=== PATIENT | male | born 1950 | race Caucasian/White ===

== ENCOUNTER → 2021-04-21 13:06 | Outpatient (CLI) | payer MEDICARE, SELFPAY ==
--- NOTE | ~2021-04-21 | XR_ITS ---
EXAMINATION: XR knee RT 3V DATE: 04/21/2021 14:06 INDICATION: Unspecified osteoarthritis, unspecified site. TECHNIQUE: 3 views of right knee including standing views were obtained. COMPARISON: Right knee radiographs 01/06/2016 FINDINGS: Bone alignment is normal. No fracture. There is mild osteoarthritis of medial and lateral c ompartments and moderate osteoarthritis of patellofemoral compartment. No knee joint effusion. IMPRESSION: 1. Moderate right knee osteoarthritis. Reviewed, dictated and finalized at location A. ING SPECIALIST
--- NOTE | ~2021-04-21 | XR_ITS ---
EXAMINATION: XR knee LT 3V DATE: 04/21/2021 14:06 INDICATION: Unspecified osteoarthritis, unspecified site. Left knee pain. TECHNIQUE: 3 views of left knee including standing views were obtained. COMPARISON: Left knee radiographs 01/06/2016 FINDINGS: Normal. No fracture. There is mild osteoarthritis of medial and lateral compartments and mo derate osteoarthritis of patellofemoral compartment. No knee joint effusion. There are loose bodies i n the knee joint posteriorly. IMPRESSION: 1. Moderate left knee osteoarthritis. 2. Left knee joint loose bodies. Reviewed, dictated and finalized at location A. POLISHER
== END ==
PROVIDERS: Visit Provider Internal Medicine
DX: M17.0 Bilateral primary osteoarthritis of knee (principal); M23.42 Loose body in knee, left knee
CPT/HCPCS: 73562

== ENCOUNTER 2021-05-01 08:54 | Emergency (ER) | payer MEDICARE, SELFPAY ==
--- NOTE | ~2021-05-01 | XR_ITS ---
EXAMINATION: XR chest 1V portable INDICATION: Shortness of breath TECHNIQUE: Portable AP chest at 0939 hours COMPARISON: 06/21/2017 FINDINGS: There are airspace opacities of the right midlung zone and left lung base. No pleural effus ion or pneumothorax is identified. The cardiomediastinal silhouette is normal. Suture anchors are not ed in the humeral heads. IMPRESSION: 1. Airspace opacities of the left lung base and right midlung zone, consistent with atelectasis versu s pneumonia. Reviewed, dictated and finalized at location A. ICAL MANAGER IMPRESSION: 1. Airspace opacities of the left lung base and right midlung zone, consistent with atelectasis versus pneumonia.
--- NOTE | ~2021-05-01 | CT_ITS ---
EXAMINATION: CTA chest PE protocol DATE: 05/01/2021 10:17 INDICATION: Shortness of breath TECHNIQUE: Computed tomography angiography (CTA) of the chest was performed with 100 mL Omnipaque-350 intravenous contrast timed to evaluate the pulmonary arteries. Coronal maximum intensity projection 3D-reconstructions were created by the technologist. The dose-length product (DLP) was 409.31 mGy-cm. Automated exposure control and iterative reconstruction technique were employed. COMPARISON: 07/27/2015 FINDINGS: The pulmonary arteries are well-opacified. No pulmonary embolism is identified. There are p atchy groundglass opacities throughout the lungs, worst at the periphery of the left upper lobe, in t he lingula and dependent portions of the lower lobes, and in the inferior portion of the right upper lobe. There are trace pleural effusions. No pneumothorax is identified. The heart size is normal. The re is mild mediastinal lymphadenopathy. Coronary artery stents are noted. There is moderate thoracic spondylosis. A hemangioma is noted in the T11 vertebral body. IMPRESSION: 1. No pulmonary embolism. 2. Patchy groundglass opacities throughout the lungs, consistent with multifocal pneumonia. 3. Mild mediastinal lymphadenopathy, likely reactive. Reviewed, dictated and finalized at location A. SUPERVISOR IMPRESSION: 1. No pulmonary embolism. 2. Patchy groundglass opacities throughout the lungs, consistent with multifoca l pneumonia. 3. Mild mediastinal lymphadenopathy, likely reactive.
[2021-05-01 09:02] VITALS: BP 149/77; PULSE 87; RESP 18; TEMP 36.7; O2SAT 95
--- NOTE | 2021-05-01 09:19 | ECG_ITS ---
Measurements Intervals [place] Rate: 81 P: 32 IN: 188 QRS: -22 QRSD: 79 T: 11 QT: 325 QTc: 379 Interpretive Statements SINUS RHYTHM DELAYED PRECORDIAL R/S TRANSITION INFERIOR INFARCT, AGE INDETERMINATE BASELINE ARTIFACT- I, II, AVR, AVL, AVF ABNORMAL ECG Electronically Signed On 05-01-2021 11:33:53 IMMIGRATION ASSOCIATE by Sam Pepper D.O.
--- NOTE | 2021-05-01 09:28 | ED.URI ---
HPI - URI/Sore Throat General Chief Complaint: Upper Respiratory Infection Stated Complaint: Covid + Time Seen by Provider: 05/01/21 09:01 Source: patient History of Present Illness HPI Narrative: Patient presents with shortness of breath and cough. Patient reports she is feeling well for the past 5 days. Does report his tested positive for Covid he did a home test and did test positive for Covid approximately 5 days ago. He like his symptoms are getting worse so he came to the ER for evaluation. Describes symptoms as difficulty getting enough air. When he tries to take a big deep breath he coughs. Ports diffuse body aches denies any focal areas of pain such as chest pain or abdominal pain. Related Data Home Medications Medication Instructions Recorded Confirmed ascorbic acid (vitamin C) 1,000 mg 1 gm PO DAILY 06/08/19 04/29/21 tablet multivitamin 1 tablet PO DAILY 06/08/19 04/29/21 omega-3 fatty acids 1,000 mg 2,000 mg PO DAILY cap 06/08/19 04/29/21 capsule sildenafil 25 mg tablet 25 mg PO DAILY PRN 06/14/19 04/29/21 turmeric 400 mg capsule 400 mg PO DAILY 06/26/19 04/29/21 vitamin K2 40 mcg tablet 40 mcg PO DAILY 06/26/19 04/29/21 magnesium 250 mg tablet 250 mg PO DAILY 06/04/20 04/29/21 aspirin 81 mg tablet,delayed 81 mg PO DAILY tablet 04/16/21 04/29/21 release zinc 50 mg tablet 25 mg PO DAILY tablet 04/16/21 04/29/21 Allergies Allergy/AdvReac Type Severity Reaction Status Date / Time No Known Allergies Allergy Mild Verified 05/01/21 09:04 Review of Systems Review of Systems: CONSTITUTIONAL: Denies fever, chills, or sweats. EYES: Denies visual changes, redness, or discharge. ENT: Denies rhinorrhea, congestion, sore throat, or otalgia. CARDIOVASCULAR: Denies chest pain, palpitations, or edema. RESPIRATORY: Reports shortness of breath and cough GASTROINTESTINAL: Denies abdominal pain, nausea, vomiting, or diarrhea. GENITOURINARY: Denies dysuria or hematuria. SKIN: Denies rash or itching. MUSCULOSKELETAL: Denies back pain, joint pain NEUROLOGIC: Denies headache, numbness, dizziness, or weakness. PSYCHIATRIC: Denies anxiety or depression. All systems reviewed & are unremarkable except as noted in HPI and below PMFSH Past Medical History Medical History CAD (coronary artery disease) Colon cancer screening Hyperlipidemia Surgical History Surgical History H/O heart artery stent stents times 2 History of hernia surgery Family History Family History Mother Family history of respiratory disorder Father Family history of cardiac disorder Other Family history of cardiovascular disease Social History Social History Smoking status: Never smoker Second hand tobacco smoke exposure: No Alcohol intake: never Substance use: never Substance use type: does not use Gender identity (if verbalized by the patient): Male Spiritual care concerns: No Exam Narrative: GENERAL: Well-appearing, well-nourished, and in no acute distress. HEAD: Normocephalic, atraumatic. EYES: PERRLA and EOMI. ENT: Nares clear, no rhinorrhea or epistaxis. Mucous membranes moist. NECK: Supple. No masses. No JVD CHEST: Clear to auscultation. No respiratory distress. No wheezes rales or rhonchi HEART: Regular rate and rhythm. No murmur heard. Normal peripheral pulses. ABDOMEN: Soft, nontender, nondistended, normal active bowel sounds. EXTREMITIES: Normal range of motion. No edema. SKIN: Warm, dry, no rash. NEURO: No focal deficits. Alert and oriented x3. PSYCH: Normal mood and affect. Course Reevaluation(s) Reevaluation #1: Patient reports feeling improved. Results and plan reviewed with patient. Patient comfortable with outpatient plan. Date: 05/01/21 Time: 11:09 Vital Signs Wilda
[2021-05-01] MEDS: SODIUM CHLORIDE 0.9% IV 1,000 ML 999 ML IV CONT (09:29)
[2021-05-01 09:35] VITALS: O2SAT 96
[2021-05-01 09:39] LABS: Basophils Percent Auto 0.2 % (0.2-1.2); Hematocrit 47.5 % (42.0-52.0); Hemoglobin 16.5 g/dL (14.0-18.0); Immature Granulocyte Absolute 0.05 K/mm3 (0.00-0.031); Immature Granulocyte Percent A 0.6 % (0-0.5); Immature Platelet Fraction Pct 1.7 % (0.9-11.2); Lymphocytes Absolute Auto 1.02 K/mm3 (0.9-3.2); Lymphocytes Percent Auto 11.9 % (18.3-44.2); Mean Corpuscular HGB Conc 34.7 g/dl (32-36); Mean Corpuscular Hemoglobin 31.8 pg (26-34); Mean Corpuscular Volume 91.5 fl (80-100); Mean Platelet Volume 8.8 fl (7.4-10.4); Monocytes Absolute Auto 0.5 K/mm3 (0.1-0.6); Monocytes Percent Auto 6.2 % (2.6-8.5); Neutrophils Absolute Auto 6.9 K/mm3 (1.3-6.7); Neutrophils Percent Auto 81.1 % (45.5-73.1); Platelet Count Result 162 k/mm3 (150-375); Red Blood Count 5.19 M/mm3 (4.6-6.20); Red Cell Distribution Width 12.6 % (11.5-14.5); White Blood Count 8.6 K/mm3 (4.5-10.0)
[2021-05-01 09:48] LABS: Alanine Aminotransferase 20 U/L (4-50); Albumin Level 3.7 g/dL (3.5-5.1); Alkaline Phosphatase 57 U/L (38-126); Anion Gap 5 mmol/L (8-16); Aspartate Amino Transferase 41 U/L (17-59); Bilirubin,Total 0.8 mg/dL (0.2-1.3); Blood Urea Nitrogen 13 mg/dL (9-20); Calcium 8.2 mg/dL (8.4-10.2); Carbon Dioxide 30 mmol/L (22-30); Chloride 100 mmol/L (98-107); Estimated CRCL calculation 69 ml/min; Estimated Glomerular Filt Rate > 60; Glucose 113 mg/dL (65-110); Potassium 4.1 mmol/L (3.4-5.0); Sodium 135 mmol/L (137-145)
[2021-05-01 10:45] VITALS: BP 118/69; PULSE 74; RESP 17; O2SAT 95
[2021-05-01 11:25] VITALS: BP 113/77; PULSE 73; RESP 19; O2SAT 96
== END 2021-05-01 11:27 | disposition home or self-care (01) ==
PROVIDERS: Emergency Provider Emergency Medicine; PCP Internal Medicine
DX: U07.1 COVID-19 (principal); J12.82 Pneumonia due to coronavirus disease 2019; I25.10 Atherosclerotic heart disease of native coronary artery without angina pectoris; E78.5 Hyperlipidemia, unspecified; R94.31 Abnormal electrocardiogram [ECG] [EKG]
CPT/HCPCS: 36415; 71045; 71275; 80053; 85025; 85055; 93005; 96361; 96365; 99284; J0131; J7030; Q9967

== ENCOUNTER → 2022-01-15 12:16 | Outpatient (REF) | payer MEDICARE, SELFPAY | LOC: ANHLAB 12:16 | PROVIDERS: PCP Internal Medicine; Visit Provider Nurse Practitioner | DX: C44.41 Basal cell carcinoma of skin of scalp and neck (principal) | CPT/HCPCS: 88305 ==

== ENCOUNTER 2022-02-16 11:34 | Outpatient (NON) | payer MEDICARE, SELFPAY | END 2022-02-16 11:35 | disposition home or self-care (01) | LOC: ANHLAB 11:34 | PROVIDERS: PCP Internal Medicine; Visit Provider Nurse Practitioner | DX: C44.41 Basal cell carcinoma of skin of scalp and neck (principal) | CPT/HCPCS: 88305; 88331 ==

== ENCOUNTER 2023-09-27 09:48 | Outpatient (CLI) | payer MEDICARE, SELFPAY ==
--- NOTE | ~2023-09-27 | XR_ITS ---
XR shoulder LT min 2V 09/27/2023 10:06 Indication: Left shoulder pain Procedure: 4 views left shoulder Comparison: No prior studies for comparison. Findings: There is moderate polyarticular osteoarthritis. There are surgical changes of the left david ral head. No fracture or traumatic malalignment. No significant soft tissue abnormality. No foreign b odies. Impression: 1: Moderate polyarticular osteoarthritis. Reviewed, dictated and finalized at location B. Impression: 1: Moderate polyarticular osteoarthritis.
== END 2023-09-27 09:49 | disposition home or self-care (01) ==
LOC: ANHIMG 09:49
PROVIDERS: PCP Family Medicine; Visit Provider Family Medicine
DX: M19.012 Primary osteoarthritis, left shoulder (principal)
CPT/HCPCS: 73030

== ENCOUNTER 2023-11-17 11:12 | Outpatient (CLI) | payer MEDICARE, SELFPAY ==
--- NOTE | ~2023-11-17 | XR_ITS ---
Right wrist Technique: PA, oblique, lateral, and ulnar deviation views were obtained. Clinical History: Pain Findings: No acute fracture seen. Scapholunate interval is mildly widened at 6 mm. There is mild dege nerative change of the first CMC joint and triscaphe joint. Soft tissues are unremarkable. Impression: Mild widening of scapholunate interval is compatible with underlying scapholunate ligament tear. Mild degenerative changes, as above. Reviewed, dictated and finalized at location . Impression: Mild widening of scapholunate interval is compatible with underlying scapholuna te ligament tear. Mild degenerative changes, as above.
== END 2023-11-17 11:13 | disposition home or self-care (01) ==
PROVIDERS: PCP Family Medicine; Visit Provider Family Medicine
DX: M25.531 Pain in right wrist (principal)
CPT/HCPCS: 73110

== ENCOUNTER 2023-12-24 11:28 | Outpatient (CLI) | payer MEDICARE, SELFPAY ==
[2023-12-24 11:42] LABS: Basophils Absolute Auto 0.1 K/mm3 (0.0-0.1); Basophils Percent Auto 0.7 % (0.2-1.2); Eosinophils Absolute Auto 0.1 K/mm3 (0-0.3); Eosinophils Percent Auto 0.7 % (0-4.4); Hematocrit 50.4 % (42.0-52.0); Hemoglobin 16.9 g/dL (14.0-18.0); Immature Granulocyte Absolute 0.04 K/mm3 (0.00-0.031); Immature Granulocyte Percent A 0.4 % (0-0.5); Lymphocytes Absolute Auto 1.75 K/mm3 (0.9-3.2); Lymphocytes Percent Auto 16.4 % (18.3-44.2); Mean Corpuscular HGB Conc 33.5 g/dl (32-36); Mean Corpuscular Hemoglobin 31.1 pg (26-34); Mean Corpuscular Volume 92.8 fl (80-100); Mean Platelet Volume 8.3 fl (7.4-10.4); Monocytes Absolute Auto 0.9 K/mm3 (0.1-0.6); Monocytes Percent Auto 8.2 % (2.6-8.5); Neutrophils Absolute Auto 7.9 K/mm3 (1.3-6.7); Neutrophils Percent Auto 73.6 % (45.5-73.1); Platelet Count Result 267 k/mm3 (150-375); Red Blood Count 5.43 M/mm3 (4.6-6.20); Red Cell Distribution Width 12.5 % (11.5-14.5); White Blood Count 10.7 K/mm3 (4.5-10.0)
== END 2023-12-24 11:29 | disposition home or self-care (01) ==
LOC: ANHLAB 11:30
PROVIDERS: PCP Family Medicine; Visit Provider Internal Medicine Hematology & Oncology
DX: D75.1 Secondary polycythemia (principal)
CPT/HCPCS: 36415; 85025

== ENCOUNTER 2024-02-24 10:52 | Outpatient (CLI) | payer MEDICARE, SELFPAY ==
--- NOTE | ~2024-02-24 | XR_ITS ---
XR wrist LT min 3V Ordering provider: Shane Wood MD History: . no injury tingling and numbness in 4th and 5th fingers . Comparison: None. FINDINGS: BONES: No acute fracture or dislocation. No definite scaphoid fracture. JOINT SPACES: Well maintained. Degenerative changes withcystic changes in the scaphoid and lunate bon es. Slight widening of the distance between the lunate and scaphoid which may indicate ligamentous in jury. SOFT TISSUES: Normal. IMPRESSION: No acute osseous abnormality left wrist. Reviewed, dictated and finalized at location A.
== END 2024-02-24 10:53 | disposition home or self-care (01) ==
LOC: MICIMG 10:56
PROVIDERS: PCP Plastic Surgery; Visit Provider Family Medicine
DX: R20.2 Paresthesia of skin (principal)
CPT/HCPCS: 73110

== ENCOUNTER 2024-03-26 07:29 | Outpatient (CLI) | payer MEDICARE, SELFPAY ==
--- NOTE | ~2024-03-26 | MR_ITS ---
MRI of the right wrist Technique: Coronal T1 weighted and proton density fat sat images, and axial and sagittal proton-densi ty and proton-density fat-sat images were acquired. Clinical History: Scapholunate ligament tear Findings: There is probable tear of the dorsal band of the scapholunate ligament, with mild widening of the scapholunate interval to 6 mm. There is associated probable dorsal tilt of the lunate, compati ble with DISI. Lunotriquetral ligament appears intact. There is probable degenerative signal of the T FCC, full-thickness perforation or tear evident. There are mild degenerative changes throughout the carpal bones and radial carpal joint. No significa nt joint effusion present. Flexor tendons and carpal tunnel are unremarkable. There is a probable ganglion cyst just deep to the flexor tendons just proximal to the carpal tunnel, measuring 1.2 x 0.6 x 1.6 cm. Extensor tendons ar e intact. No other soft tissue mass or fluid collection seen. IMPRESSION: Probable tear of the dorsal band of the scapholunate joint, with mild widening of the scapholunate in terval, as detailed above. Associated probable DISI, with dorsal tilt of the lunate. Mild polyarticular osteoarthritis of the wrist. 10.2 x 0.6 x 1.6 cm probable ganglion cyst just deep to the flexor tendons, proximal to the carpal tu nnel, versus possibly focal tenosynovitis. Reviewed, dictated and finalized at location . IMPRESSION: Probable tear of the dorsal band of the scapholunate joint, with mild widening of the scapholunate interval, as detailed above. Associated probable DISI, with dorsal tilt of the lunate. Mild polyarticular osteoarthritis of the wrist. 10.2 x 0.6 x 1.6 cm probable ganglion cyst just deep to the flexor tendons, pro ximal to the carpal tunnel, versus possibly focal tenosynovitis.
== END 2024-03-26 07:30 | disposition home or self-care (01) ==
PROVIDERS: PCP Family Medicine; Visit Provider Plastic Surgery
DX: S63.511A Sprain of carpal joint of right wrist, initial encounter (principal); X58.XXXA Exposure to other specified factors, initial encounter; M19.031 Primary osteoarthritis, right wrist
CPT/HCPCS: 73221

== ENCOUNTER 2024-06-26 11:30 | Outpatient (CLI) | payer MEDICARE, SELFPAY ==
[2024-06-26 11:43] LABS: Basophils Absolute Auto 0.1 K/mm3 (0.0-0.1); Basophils Percent Auto 0.8 % (0.2-1.2); Eosinophils Absolute Auto 0.1 K/mm3 (0-0.3); Eosinophils Percent Auto 0.9 % (0-4.4); Hematocrit 52.7 % (42.0-52.0); Hemoglobin 17.7 g/dL (14.0-18.0); Immature Granulocyte Absolute 0.03 K/mm3 (0.00-0.031); Immature Granulocyte Percent A 0.3 % (0-0.5); Lymphocytes Absolute Auto 2.19 K/mm3 (0.9-3.2); Lymphocytes Percent Auto 24.1 % (18.3-44.2); Mean Corpuscular HGB Conc 33.6 g/dl (32-36); Mean Corpuscular Hemoglobin 31.4 pg (26-34); Mean Corpuscular Volume 93.4 fl (80-100); Mean Platelet Volume 8.3 fl (7.4-10.4); Monocytes Absolute Auto 0.6 K/mm3 (0.1-0.6); Monocytes Percent Auto 6.8 % (2.6-8.5); Neutrophils Absolute Auto 6.1 K/mm3 (1.3-6.7); Neutrophils Percent Auto 67.1 % (45.5-73.1); Platelet Count Result 259 k/mm3 (150-375); Red Blood Count 5.64 M/mm3 (4.6-6.20); Red Cell Distribution Width 12.4 % (11.5-14.5); White Blood Count 9.1 K/mm3 (4.5-10.0)
[2024-06-26 11:47] LABS: Blood Urea Nitrogen 13 mg/dL (8-26); Carbon Dioxide 30 mmol/L (22-30); Chloride 105 mmol/L (98-109); Estimated Glomerular Filt Rate > 60; Glucose 100 mg/dL (70-105); Ionized Calcium (POC) 1.21 mmol/L (1.11-1.31); Potassium 4.7 mmol/L (3.5-4.9); Sodium 142 mmol/L (138-146)
--- OUTSIDE RECORDS SUMMARY | 2024-06-29 13:02 | XMS_ITS | Referral Summary ---
Author Organization [facility] [employer] Address [address] [place] [address] Care Team Providers Care Telegraphic Typewriter Mechanic Name Role Phone Vazquez Mendoza MD Primary Care Provider [phone] Source Comments [employer],non-owned Affiliates and Associated Physician Practices is amultiple site organization consisting of ambulatory clinics and hospital sitesin [place], [place], [place] and [place]. This disclosure is being madepursuant to the Care Everywhere program and may not contain all information available regarding this patient. Last updated 18.Markr Allergies No known active allergies Medications * Be aware that medications may not be up to date on this document. Alwaysverify current medications with the patient. Medication Sig Dispensed Refills Start Date End Date Status primidone (MYSOLINE) 50 MG tablet Take 50 mg by mouth 2 times daily. Active clonazePAM (KLONOPIN) 1 MG tablet Take 1 mg by mouth at bedtime. Active ascorbic acid (VITAMIN C) 250 MG tablet Take 250 mg by mouth 2 times daily. Active calcium-vitamin D (OS-IAN 250 PLUS D 125 UNITS) 250-125 MG-UNIT tablet Take 1 Tab by mouth 2 times daily with morning and evening meal. Active [place]-3 Fatty Acids (FISH OIL) 1000 MG CAPS capsule Take 1,000 mg by mouth. Active multivitamin daily (THERAGRAN) tablet Take 1 Tab by mouth daily with food. Active cyanocobalamin (VITAMIN B-12) 1000 MCG tablet Take 1,000 mcg by mouth once daily. Active niacin CR (NIASPAN) 500 MG tablet Take 500 mg by mouth at bedtime. Active fenofibrate (LOFIBRA) 160 MG tablet Take 160 mg by mouth once daily. Take with largest meal of the day. Active Social History Tobacco Use Types Packs/Day Years Used Date Smoking Tobacco: Never Alcohol Use Standard Drinks/Week Comments No 0 (1 standard drink = 0.6 oz pur e alcohol) Sex and Gender Information Value Date Recorded Sex Assigned at Not on file Gender Identity Not on file Sexual Orientation Not on file Last Filed Vital Signs Vital Sign Reading Time Taken Comments Blood Pressure 115/75 01/04/2014 9:27 AM CDT Pulse 57 01/04/2014 9:27 AM CDT Temperature - - Respiratory Rate - - Oxygen Saturation 92% 01/04/2014 9:25 AM CDT Inhaled Oxygen Concentration - - Weight 68.9 kg (152 lb) 01/04/2014 7:51 AM CDT Height 170.2 cm (5' 7 ) 01/04/2014 7:51 AM CDT Body Mass Index 23.81 01/04/2014 7:51 AM CDT Plan of Treatment Not on file Procedures Procedure Name Priority Date/Time Associated Diagnosis Comments ENDOSCOPY, COLON, SCREENING Routine 01/04/2014 8:29 AM CDT from Last 3 Months or Most Recently Relevant to Health Maintenance Results * ENDOSCOPY, COLON, SCREENING (01/04/2014 8:29 AM CDT) Report Endoscopy POC _ Patient Name: James Mohr ?Procedure Date: 01/04/2014 8:29 AM ? Date of : 1950 ? Admit Type: Outpatient Age: 63 ? Gender: Male Attending MD: Rod Nicole MD ? _ Procedure: ? Colonoscopy Indications: ? Screening for colorectal malignant neoplasm Providers: ? Rod Nicole MD (Doctor), Lynsey Espinosa RN, ? Donovan Singer, Excelsior Picker Referring MD: ?Fausto Castaneda MD (Referring MD) Medicines: ? Monitored Anesthesia Care Complications: ? No immediate complications. _ Procedure: ? Pre-Anesthesia Assessment: ? - Prior to the procedure, a History and Physical was ? performed, and patient medications and allergies were ? reviewed. The patient is competent. The risks and benefits ? of the procedure and the sedation options and risks were ? discussed with the patient. All questions were answered ? and informed consent was obtained. Patient identification ? and proposed procedure were verified by the physician, the ? nurse, the firepot operator and tender and the electrical cad technician in the endoscopy ? suite. Mental Status Examination: alert and oriented. ? Airway Examination: normal oropharyngeal airway and neck ? mobility. Respiratory Examination: clear to auscultation. ? CV Examination: normal. ASA Grade Assessment: II - A ? patient with mild systemic disease. After reviewing the ? risks and benefits, the patient was deemed in satisfactory ? condition to undergo the procedure. The anesthesia plan ? was to use general anesthesia. Immediately prior to ? administration of medications, the patient was re-assessed ? for adequacy to receive sedatives. The heart rate, ? respiratory rate, oxygen saturations, blood pressure, ? adequacy of pulmonary ventilation, and response to care ? were monitored throughout the procedure. The physical ? status of the patient was re-assessed after the procedure. ? After I obtained informed consent, the scope was passed ? under direct vision. Throughout the procedure, the ? patient's blood pressure, pulse, and oxygen saturations ? were monitored continuously. The Colonoscope was ? introduced through the anus and advanced to the terminal ? ileum, with identification of the appendiceal orifice and ? IC valve. The colonoscopy was performed without ? difficulty. The patient tolerated the procedure well. The ? quality of the bowel preparation was good. ? Impression: ?- Diverticulosis in the sigmoid colon. ? - The examination was otherwise normal on direct and ? retroflexion views. Findings: ? The perianal and digital rectal examinations were normal. ? A few small-mouthed diverticula were found in the sigmoid colon. ? The exam was otherwise without abnormality on direct and retroflexion ? views. _ Recommendation: ?- Continue present medications. ? - Repeat colonoscopy in 10 years for surveillance. ? Procedure Code(s): ? --- Professional --- ? 60368, Colonoscopy, flexible, proximal to splenic flexure; diagnostic, ? with or without collection of specimen(s) by brushing or washing, with ? or without colon decompression (separate procedure) ? --- Technical --- ? 09133, Colonoscopy, flexible, proximal to splenic flexure; diagnostic, ? with or without collection of specimen(s) by brushing or washing, with ? or without colon decompression (separate procedure) Diagnosis Code(s): ? --- Professional --- ? V76.51, Special screening for malignant neoplasms of colon ? 562.10, Diverticulosis of colon (without mention of hemorrhage) ? --- Technical --- ? V76.51, Special screening for malignant neoplasms of colon ? 562.10, Diverticulosis of colon (without mention of hemorrhage) CPT copyright 2013 [employer]. All rights reserved. The codes documented in this report are preliminary and upon pre coder review may be revised to meet current compliance requirements. _ Rod Nicole MD 01/04/2014 8:57 AM This report has been signed electronically. Number of Addenda: 0 Note Initiated On: 01/04/2014 8:29 AM [facility] ENDOSCOPY 01/04/2014 8:29 AM CDT Rod Nicole MD GI PROCEDURE ORDERAB LES [facility] ENDOSCOPY from Last 3 Months or Most Recently Relevant to Health Maintenance Care Teams Telegraphic Typewriter Mechanic Relationship Specialty Start Date End Date Vazquez Mendoza MD [address] [place] [id number] PCP - General 01/27/22
--- OUTSIDE RECORDS SUMMARY | 2024-06-29 13:02 | XMS_ITS | Continuity of Care Document ---
Author Organization [facility] Address [address] [facility] [address] [place] [address] Phone Care Team Providers Care Ben Day Artist Name Role Phone Wicho Anderson MD Unavailable Unavailable Allergies, Adverse Reactions, Alerts Substance Reaction Status Criticality No Known allergies Medications Medication Instructions Dosage Effective Dates (start - stop) Status Comments Aspir-81 81 mg Tab take 1 tablet (81MG) by ORAL route every day - Active Fish Oil 1,200 mg-144 mg-216 mg Cap - Active Vitamins & Minerals Tab - Active niacin 500 mg Tab take 1 tablet (500MG) by ORAL route 3 times every day 500 MG - Active Clear Eyes 0.012 % Drops instill 1 drop by Ophthalmic route 4 times every day into affected eye(s) - Active PRIMIDONE (unknown strength) Not Available - Active KLONOPIN (unknown strength) Not Available - Active NIACIN (unknown strength) Not Available - Active CRESTOR (unknown strength) Not Available - Active DIOVAN (unknown strength) Not Available - Active Procedures Procedure Date AFTER CATARACT LASER SURGERY OFFICE/OUTPATIENT VISIT, EST AFTER CATARACT LASER SURGERY OFFICE/OUTPATIENT VISIT, EST CATARACT SURG W/IOL, 1 STAGE POSTOP FOLLOW-UP VISIT CATARACT SURG W/IOL, 1 STAGE OFFICE/OUTPATIENT VISIT, NEW OPHTHALMIC BIOMETRY RT OPHTHALMIC BIOMETRY Advance Directives Directive Yes / No Effective Date File Name No Information Encounters Encounter Description Practice Location Reason(s) For Visit Diagnoses Date Provider Providers Copied on Encounter [facility], [address] [place] [address], [place], [place], [id number], tel:[phone] [facility] [place] No Information 3 Monica Wicho. [address] [place] [address], [address], [place], [address], . tel:[phone] Referring Provider: Dima Calderon, [address], [place], [place], [id number]. tel:[phone] OFFICE/OUTPA TIENT VISIT, [facility], [address] [place] [address], [id number], tel:[phone] [facility] blurry vision (chief complaint) Lens replaced by other meansAfter-c ataract, obscuring visionOther vitreous opacities 3 Monica Wicho. [address] [place] [address], [address], [place], [address], [place]. tel:[phone] Referring Provider: Dima Calderon, [address], [place], [place], [address]. tel:[phone] [facility], [address] [place] [address], [id number], [place] tel:[phone] [address] [place] [address] [facility] [place] No Information 2 Monica Wicho. [address] [place] [address], [address] [place] [address], [address], [place]. tel:[phone] Referring Provider: Dima Calderon, [address], [place], [place], [address]. tel:[phone] OFFICE/OUTPA TIENT VISIT, [facility], [address] [place] [address], [id number], [place] tel:[phone] [facility] blurry vision (chief complaint) After-catara ct, obscuring vision Sep- 2 Monica Wicho. [address] [place] [address], [address] [place], [address], [place]. tel:[phone] Referring Provider: Dima Calderon, [address], [place], [place], [id number]. tel:[phone] [facility], [address] [place], [place] [address], [place], [place], [id number], [place] tel:[phone] [facility] No Information 0 Monica Wicho. [address] [place] [address], [address], [place], [address], [place]. tel:[phone] Referring Provider: Dima Calderon, [address], [place], [place], [address]. tel:[phone] [facility], [address] [place] [address], [id number], [place] tel:[phone] [facility] No Information 0 Monica Wicho. [address] [place] [address], [address], [place], [address], [place]. tel:[phone] Referring Provider: Dima Calderon, [address], [place], [place], [id number]. tel:[phone] [facility], [address] [place] [address], [id number], [place] tel:[phone] [address] [place] [address] No Information 0 Monica Wicho. [address] [place] [address], [address], [place], [address], [place]. tel:[phone] Referring Provider: Dima Calderon, [address], [place], [place], [address]. tel:[phone] OFFICE/OUTPA TIENT VISIT, [facility], [address] [place], [place] [address], [id number], [place] tel:[phone] [facility] blurry vision (chief complaint) Senile nuclear sclerosis 0 Monica Wicho. [address] [place] [address] [address], [place], [address], [place]. tel:[phone] Family History Family Member Type Diagnosis Age At Onset No Information Payers Payer name Insurance type Covered democrat ID Sarah dubon(s) [employer] PPO CI [id number] Social History Type Description Quantity Date Captured Comments Sex Male Smoking Status No Information Chief Complaint And Reason For Visit No Information Plan Of Treatment Date Type Action Status No Information History Of Present Illness Encounter Date Complaint History Of Prese nt Illness No Information Instructions Date Instruction Additional Infor vanessa Other vitreous opaci ties OU - Discussed diagnosis in detail with patient. No treatment is required at this time. Reassured patient of current condition and treatment. Will continue to observe condition and or symptoms. Educational materials provided:Flashers/floaters. RD Warnings Related to Other vitreous opacities After-cataract, obsc uring vision OD - YAG Necessary OD Related to After-cataract, obscuring vision Lens replaced by other means OU Related to Lens replaced by other means After-cataract, obsc uring vision OS Vision: vision affected. - Schedule yag os Related to After-cataract, obscuring vision Cataract, Nuclear Sc lerosis, OD>OS - significant - vision affected - CE/IOL OD (plano) Related to Cataract, Nuclear Sclerosis Assessments Type Assessment Date No Information
--- OUTSIDE RECORDS SUMMARY | 2024-06-29 13:02 | XMS_ITS | Encounter Summary ---
Author Organization [facility] [employer] [facility] Address [address] [place] [address] Care Team Providers Care Medication Coordinator Name Role Phone Shane Wood MD Primary Care Provider [phone] Reason for Visit * Reason Comments Follow Up Encounter Details Date Type Department Care Team (Late st Contact Info) Description 06/26/2024 11:45 AM ELEVATED WORK PLATFORM OPERATOR Office Visit [facility] Oncology and Hematology - [place] [address] [facility] [address] [place] [address] Gavin Flores MD [address] [facility] [address] [place] [address] Erythrocytosis (Primary Dx) Social History Tobacco Use Types Packs/Day Years Used Date Smoking Tobacco: Never Smokeless Tobacco: Never Tobacco Cessation:Counseling Given: Not Answered Alcohol Use Standard Drinks/Week Comments Never 0 (1 standard drink = 0.6 oz pur e alcohol) Sex and Gender Information Value Date Recorded Sex Assigned at Not on file Legal Sex Male 12:46 PM ELEVATED WORK PLATFORM OPERATOR Gender Identity Not on file Sexual Orientation Not on file documented as of this encounter Last Filed Vital Signs Vital Sign Reading Time Taken Comments Blood Pressure 133/82 06/26/2024 11:46 AM ELEVATED WORK PLATFORM OPERATOR Pulse 63 06/26/2024 11:46 AM ELEVATED WORK PLATFORM OPERATOR Temperature 36.9 ??C (98.4 ??F) 06/26/2024 11:[address] Respiratory Rate 15 06/26/2024 11:46 AM ELEVATED WORK PLATFORM OPERATOR Oxygen Saturation 95% 06/26/2024 11:46 AM ELEVATED WORK PLATFORM OPERATOR Inhaled Oxygen Concentration - - Weight 74.6 kg (164 lb 6.4 oz) 06/26/2024 11:46 AM ELEVATED WORK PLATFORM OPERATOR Height - - Body Mass Index 26.14 12/22/2021 1:25 PM CDT documented in this encounter Progress Notes * Gavin Flores MD - 06/26/2024 1:13 PM CST HEMATOLOGY / ONCOLOGY PROGRESS NOTE Patient Identification: Name: James Mohr Age: 74 y.o. Sex: male : 1950 DIAGNOSIS Secondary erythrocytosis CURRENT TREATMENT Phlebotomy started on July 16, 2021 TREATMENT HISTORY SUBJECTIVE Patient came to the office for follow-up visit. He denies any chest pain and shortness of breath. Weight and appetite stable. No bleeding and bruising. No other new complaints. Review of system Constitutional: denies fevers, sweats, denies any tiredness and fatigue, weight and appetite stable HEENT: denies sinus congestion, hearing or vision problems Respiratory: denies cough, dyspnea, wheeze Cardiovascular: denies chest pain, exertional chest pressure/discomfort, nausea, syncope, shortnessof breath GI: denies constipation, diarrhea, dsyphagia, reflux symptoms, vomiting, melena : denies dysuria, frequency, incontinence, urgency Integumentary system: no lymphadenopathy, sweats, flushing Musculoskeletal: denies: myalgia, complain of arthralgia involving both hands Neurological: denies blurry or disturbed vision, numbness/weakness, dizziness Skin: No lumps, bumps or rashes. 12 point review of system was reviewed Objective: Vital signs in last 24 hours: As per nursing note Exam: General appearance: alert, cooperative, no distress, appears stated age Head: normocephalic, without obvious abnormality, atraumatic Eyes: conjunctivae/corneas clear, EOM's intact Ears: normal external ear canals AU Nose: Nares normal. Septum midline. Mucosa normal. No drainage or sinus tenderness Throat: Lips, mucosa, and tongue normal. Teeth and gums normal Neck: supple, symmetrical, trachea midline. Lungs: clear to auscultation bilaterally Heart: regular rate and rhythm, S1, S2 normal, no murmur, click, rub or gallop Abdomen: soft, non-tender. Bowel sounds normal. No masses, No organomegaly Extremities: extremities normal, atraumatic, no cyanosis or edema Skin: Skin color, texture, turgor normal. No rashes or lesions Lymph nodes: No lymphadenopathy Neuro: No obvious focal deficit Exam as above PATH LABS Labs from June 20, 2021 showed hemoglobin 18.2 hematocrit 53 JAK2 mutation negative erythropoietin level 3.7 creatinine 0.9 total protein 6.9 total bilirubin 1.0 Labs from September 19 showed hemoglobin 17.3 hematocrit 50.2 Labs from December 16 showed hematocrit 50.1 Labs from June 19 showed hemoglobin 17.9 hematocrit 52.8 Labs from December 23 showed hematocrit 51.6 Labs from June 25 showed WBC 9.1 hemoglobin 17.5 hematocrit 50.6 platelet 240,000 Labs from December 23 showed WBC 10.7 hemoglobin 16.9 hematocrit 50.4 platelet 2 67,000 Labs from June 26 showed WBC 9.1 hemoglobin 17.7 hematocrit 52.7 platelet 259,000 creatinine 1.0 Assessment: Plan: Patient Active Problem List Diagnosis Date Noted Erythrocytosis 05/14/2021 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 He denies any history of smoking and COPD. He also denies any history of sleep apnea and testosterone hormone therapy use. Etiology unclear. Patient had phlebotomy done on July 16, 2021. Labs noted. Hematocrit has gone up to 52.7. I recommended donating the blood. He will continue babyaspirin and follow-up in 6 months. Hand arthralgia. Stable. Tremors. Stable on Mysoline. Hyperlipidemia. This has been managed by the primary care physician. 06/26/2024 Gavin Flores MD ATED WORK PLATFORM OPERATOR documented in this encounter Plan of Treatment Upcoming Encounters Date Type Department Care Team (Late st Contact Info) Description 12/25/2024 11:30 AM CDT Office Visit [facility] Oncology and Hematology - [place] [address] [facility] [place] [address] Gavin Flores MD [address] [facility] [address] [place] [address] Scheduled Orders Name Type Priority Associated Diagnoses Orde r Schedule CBC WITH DIFFERENTIAL Lab Stat Erythrocytosis Expected: 12/24/2024, Expires: 06/26/2025 BASIC METABOLIC PANEL Lab Stat Erythrocytosis Expected: 12/24/2024, Expires: 06/26/2025 documented as of this encounter Visit Diagnoses Diagnosis Erythrocytosis- Primary Reserved for inherently not codable concepts WITHOUT codable children documented in this encounter Care Teams Medication Coordinator Relationship Specialty Start Date End Date Shane Wood MD [address] [place] [address] PCP - General Family Practice 12/23/22 documented as of this encounter
--- OUTSIDE RECORDS SUMMARY | 2024-06-29 13:02 | XMS_ITS | Clinical Summary ---
Author Organization [facility] Erasmo Barbosa Address [address] [facility] [place] [address] Care Team Providers Care Cosmetician Apprentice Name Role Phone Shane Wood MD Primary Care Provider [phone] Allergies No known active allergies Medications OMEGA-3 FATTY ACIDS-FISH OIL ORAL Take by mouth. Activ e multivitamin (DAILY-SHELLEY) tablet Take 1 Tablet by mouth daily. Active ascorbic acid, vitamin C, (VITAMIN C) 100 mg Tablet Take 100 mg by mouth daily. Active udwsjcm-rwlf-yb ztr-qiyt-wfnqve 100 mg-150 mg- 50 mg-150 mg Capsule Take by mouth. Activ e VITAMIN K2 ORAL Take by mouth. Active MAGNESIUM CITRATE ORAL Take by mouth. Ac tive primidone (MYSOLINE) 50 mg tablet Take 50 mg by mouth every 8 hours. Active aspirin (ECOTRIN EC) 81 mg Tablet, Delayed Release (E.C.) Take 81 mg by mouth daily. Active zinc sulfate 110 mg (25 mg zinc) Tablet Take by mouth. Ac tive fluticasone propionate (FLONASE) 50 mcg/spray [place], Suspension nasal inhaler USE 1 SPRAY(S) IN EACH NOSTRIL ONCE DAILY 2 Active sildenafiL (VIAGRA) 100 mg tablet TAKE 1 TABLET BY MOUTH ONCE DAILY NEEDED FOR SEXUAL ACTIVITY ADMINISYER 30 MINUTES TO 4 HOURS BEFORE ACTIVITY 2 Active Active Problems Problem Noted Date Diagnosed Date Erythrocytosis 05/14/2021 Encounters Date Type Department Care Team Description 06/28/2024 External Device Data STL ABSTRACTION Provider, Abstract 06/27/2024 Orders Only [facility] Oncology and Hematology - [place] [address] [place] [address] Gavin Flores MD 06/26/2024 11:45 AM NETWORK MANAGER Office Visit [facility] Oncology and Hematology [facility] [address] [place] [address] Gavin Flores MD Erythrocytosis (Primary Dx) 06/21/2024 External Device Data STL ABSTRACTION Provider, Abstract from Last 3 Months Family History Medical History Relation Name Comments Cancer Father Heart Disease Father Relation Name Status Comments Brother 1 Alive Brother 2 Alive Brother 3 Alive Brother 4 Alive Father Mother Sister 1 Alive Sister 2 Alive Son Alive Social History Tobacco Use Types Packs/Day Years Used Date Smoking Tobacco: Never Smokeless Tobacco: Never Tobacco Cessation:Counseling Given: Not Answered Alcohol Use Standard Drinks/Week Comments Never 0 (1 standard drink = 0.6 oz pur e alcohol) Sex and Gender Information Value Date Recorded Sex Assigned at Not on file Legal Sex Male 12:46 PM NETWORK MANAGER Gender Identity Not on file Sexual Orientation Not on file Last Filed Vital Signs Vital Sign Reading Time Taken Comments Blood Pressure 133/82 06/26/2024 11:46 AM NETWORK MANAGER Pulse 63 06/26/2024 11:46 AM NETWORK MANAGER Temperature 36.9 ??C (98.4 ??F) 06/26/2024 11:[address] Respiratory Rate 15 06/26/2024 11:46 AM NETWORK MANAGER Oxygen Saturation 95% 06/26/2024 11:46 AM NETWORK MANAGER Inhaled Oxygen Concentration - - Weight 74.6 kg (164 lb 6.4 oz) 06/26/2024 11:46 AM NETWORK MANAGER Height 168.9 cm (5' 6.5 ) 12/22/2021 1:25 PM CDT Body Mass Index 26.14 12/22/2021 1:25 PM CDT Plan of Treatment Upcoming Encounters Date Type Department Care Team (Late st Contact Info) Description 12/25/2024 11:30 AM CDT Office Visit [facility] Oncology and Hematology [place] [address] [place] [address] Gavin Flores MD [address] [facility] [employer] [address] [place] [address] Health Maintenance Due Date Last Done Comments DTAP/TDAP/TD VACCINES (1 - Tdap) 1968 FIT-DNA Q 3 years 1994 FIT/FOBT Q 1 year 1994 Flex Sig/CT Colonography Q 5 years 1994 PNEUMOCOCCAL VACCINE 65+ YEARS (1 of 1 - PCV) 06/09/19 00 ZOSTER VACCINE (1 of 2) 1999 COLORECTAL SCREENING 01/05/2024 01/04/2014 Colorectal Cancer Screening 01/05/2024 INFLUENZA VACCINE (#1) 2024 [place] Prev entative Visit/Annual Wellness Visit 06/07/2024 RSV VACCINE (60+ or ) (1 - 1-dose 75+ series) 2024 Procedures Procedure Name Priority Date/Time Associated Diagnosis Comments BASIC METABOLIC PANEL Routine 06/26/2024 2:36 PM NETWORK MANAGER CBC WITH DIFFERENTIAL Routine 06/26/2024 2:33 PM NETWORK MANAGER from Last 3 Months Results * BASIC METABOLIC PANEL (06/26/2024 2:36 PM NETWORK MANAGER) Blood us Gavin Flores MD CHEMISTRY ORDERABLES Final Resu lt * CBC WITH DIFFERENTIAL (06/26/2024 2:33 PM NETWORK MANAGER) Blood us Gavin Flores MD HEMATOLOGY ORDERABLES Final Res ult from Last 3 Months [id number] O Care Teams Cosmetician Apprentice Relationship Specialty Start Date End Date Shane Wood MD [address] [place] [id number] PCP - General Family Practice 12/23/22
--- OUTSIDE RECORDS SUMMARY | 2024-06-29 13:02 | XMS_ITS | Patient Health Summary ---
Author Organization [facility] [employer] Address [address] [facility] [place] [place] [address] Care Team Providers Care Geophysical Manager Name Role Phone Vazquez Mendoza MD Primary Care Provider [phone] [facility],non-owned Affiliates and Associated Physician Practices is amultiple site organization consisting of ambulatory clinics and hospital sitesin [place], [place], [place] and [place]. This disclosure is being madepursuant to the Care Everywhere program and may not contain all information available regarding this patient. Last updated 18.[facility] [employer] Allergies No known active allergies Medications * Be aware that medications may not be up to date on this document. Alwaysverify current medications with the patient. * primidone (MYSOLINE) 50 MG tablet Take 50 mg by mouth 2 times daily. * clonazePAM (KLONOPIN) 1 MG tablet Take 1 mg by mouth at bedtime. * ascorbic acid (VITAMIN C) 250 MG tablet Take 250 mg by mouth 2 times daily. * calcium-vitamin D (OS-INA 250 PLUS D 125 UNITS) 250-125 MG-UNIT tablet Take 1 Tab by mouth 2 times daily with morning and evening meal. * Crowder-3 Fatty Acids (FISH OIL) 1000 MG CAPS capsule Take 1,000 mg by mouth. * multivitamin daily (THERAGRAN) tablet Take 1 Tab by mouth daily with food. * cyanocobalamin (VITAMIN B-12) 1000 MCG tablet Take 1,000 mcg by mouth once daily. * niacin CR (NIASPAN) 500 MG tablet Take 500 mg by mouth at bedtime. * fenofibrate (LOFIBRA) 160 MG tablet Take 160 mg by mouth once daily. Take with largest meal of the day. Social History Tobacco Use Types Packs/Day Years [...] Mass Index 23.81 01/04/2014 7:51 AM CDT Procedures * COLONOSCOPY SCREEN(Performed 01/04/2014) Performed for Special screening for malignant neoplasms, colon * ENDOSCOPY, COLON, SCREENING(Performed 01/04/2014) Results * ENDOSCOPY, COLON, SCREENING (01/04/2014 8:29 [...] (Doctor), Lynsey Espinosa RN, ? Donovan Singer, Care Worker Referring MD: ?Fausto Castaneda MD (Referring MD) [...] by the physician, the ? nurse, the eclectic doctor and the electronic security technician in the endoscopy ? suite. Mental [...] Procedure Code(s): ? --- Professional --- ? 28469, Colonoscopy, flexible, proximal to splenic flexure; diagnostic, ? with or without collection of specimen(s) by brushing or washing, with ? or without colon decompression (separate procedure) ? --- Technical --- ? 33257, Colonoscopy, flexible, proximal to splenic flexure; diagnostic, [...] (without mention of hemorrhage) CPT copyright 2013 [employer]. All rights reserved. The codes documented in this report are preliminary and upon engagement specialist review may be revised to meet current compliance requirements. _ Rod Nicole MD 01/04/2014 8:57 AM This report has been signed electronically. Number of Addenda: 0 Note Initiated On: 01/04/2014 8:29 AM [facility] 01/04/2014 8:29 AM CDT Rod Nicole MD GI PROCEDURE ORDERAB LES [facility] Care Teams Geophysical Manager Relationship Specialty Start Date End Date Vazquez Mendoza MD [address] [place] [address] PCP - General 8/23/22
--- OUTSIDE RECORDS SUMMARY | 2024-06-29 13:02 | XMS_ITS | Clinical Summary ---
Author Organization [facility] [employer] Address [address] [place] [address] Care Team Providers Care Lime Burner Name Role Phone Vazquez Mendoza MD Primary Care Provider [phone] Source Comments [facility],non-owned Affiliates and Associated Physician Practices is amultiple site organization consisting of ambulatory clinics and hospital sitesin [place], [place], [place] and [place]. This disclosure is being madepursuant to the Care Everywhere program and may not contain all information available regarding this patient. Last updated 18.[facility] Allergies No known active allergies Medications * [...] daily with morning and evening meal. Active [place]-3 Fatty Acids (FISH OIL) 1000 MG CAPS [...] 01/04/2014 7:51 AM CDT Plan of Treatment Health Maintenance Due Date Last Done Comments COLOGUARD (AGES 45-75) - COL ON CA SCREENING 1949 CT COLONOGRAPHY - COLON CA SCREENING 1950 FIT - COLON CA SCREENING 1949 FLEX SIG - COLON CA SCREENING 1949 HEPATITIS C SCREENING 06/05/1967 DTAP/TDAP/TD VACCINES (1 - Tdap) 1968 PNEUMOCOCCAL VACCINE 50+ (1 of 1 - PCV) 1999 ZOSTER VACCINE (1 of 2) 1999 COLON MONITORING 01/05/2024 01/04/2014, 01/04/2014 COLONOSCOPY - COLON CA SCREENING 01/05/2024 01/04/2014, 01/04/2014 Colorectal Cancer Screening 01/05/2024 COVID-19 VACCINE (1 - 2023-2 5 season) 2024 INFLUENZA VACCINE (#1) 2024 DEPRESSION SCREENING 06/07/2024 Respiratory Syncytial Virus (RSV) Vaccine Pt: or over 60 yrs (1 - 1-dose 75+ series) 2024 HEPATITIS B VACCINE Aged Out No longe r eligible based on patient's age to complete this topic HIB VACCINE Aged Out No longer eligi ble based on patient's age to complete this topic HPV VACCINE Aged Out No longer eligi ble based on patient's age to complete this topic MENINGOCOCCAL (Group B) VACCINE Aged Out No longer eligible b ased on patient's age to complete this topic MENINGOCOCCAL VACCINE Aged Out No alma jailene eligible based on patient's age to complete this topic Procedures Procedure Name Priority Date/Time Associated Diagnosis [...] (Doctor), Lynsey Espinosa RN, ? Donovan Singer, Mgmt Analyst Referring MD: ?Fausto Castaneda MD (Referring MD) [...] by the physician, the ? nurse, the head mechanic and the staking technician in the endoscopy ? suite. Mental [...] Procedure Code(s): ? --- Professional --- ? 04943, Colonoscopy, flexible, proximal to splenic flexure; diagnostic, ? with or without collection of specimen(s) by brushing or washing, with ? or without colon decompression (separate procedure) ? --- Technical --- ? 21983, Colonoscopy, flexible, proximal to splenic flexure; diagnostic, [...] (without mention of hemorrhage) CPT copyright 2013 [employer]. All rights reserved. The codes documented in this report are preliminary and upon acid painter review may be revised to meet current compliance requirements. _ Rod Nicole MD 01/04/2014 8:57 AM This report has been signed electronically. Number of Addenda: 0 Note Initiated On: 01/04/2014 8:29 AM [facility] 01/04/2014 8:29 AM CDT Rod Nicole MD GI PROCEDURE ORDERAB LES [facility] END[facility]COPY from Last 3 Months or Most Recently Relevant to Health Maintenance Care Teams Lime Burner Relationship Specialty Start Date End Date Nukala, Vazquez, MD [address] [place] [address] PCP - General 01/27/22
== END 2024-06-26 11:31 | disposition home or self-care (01) ==
LOC: ANHLAB 11:31
PROVIDERS: PCP Family Medicine; Visit Provider Internal Medicine Hematology & Oncology
DX: D75.1 Secondary polycythemia (principal)
CPT/HCPCS: 36415; 80047; 85025

== ENCOUNTER 2024-10-09 10:53 | Emergency (ER) | payer MEDICARE, SELFPAY ==
[2024-10-09 11:00] VITALS: BP 131/84; PULSE 92; RESP 20; TEMP 37.1; O2SAT 100
--- NOTE | 2024-10-09 11:01 | ED_ITS ---
HPI - Wound/Laceration General Chief Complaint: Wound/Laceration Stated Complaint: Left Foot Wound Source: patient Mode of arrival: ambulatory Limitations: no limitations History of Present Illness HPI narrative: Patient presents to the clinic with complaints of an infected wound. He cut his left dorsal foot with a diamond grinder ten days ago. He states that he has been applying castor oil and Neosporin to his wound everyday. Denies any fevers or chills. Related Data Home Medications ?Medication ?Instructions ?Recorded ?Confirmed ?Last Taken ?Type multivitamin 1 tablet PO DAILY 06/08/19 12/13/23 Unknown History omega-3 fatty acids 1,000 mg 2,000 mg PO DAILY 06/08/19 12/13/23 Unknown History capsule (Fish Oil Concentrate) turmeric 400 mg capsule 400 mg PO DAILY 06/26/19 12/13/23 Unknown History vitamin K2 40 mcg tablet 40 mcg PO DAILY 06/26/19 12/13/23 Unknown History magnesium 250 mg tablet 250 mg PO DAILY 06/04/20 12/13/23 Unknown History aspirin 81 mg tablet,delayed 81 mg PO DAILY 04/16/21 12/13/23 Unknown History release (Adult Low Dose Aspirin) ascorbic acid (vitamin C) 1,000 mg 1 g PO DAILY PRN 08/19/23 12/13/23 Unknown History tablet fluticasone propionate 50 1 spray intranasal DAILY PRN 08/19/23 12/13/23 Unknown History mcg/actuation nasal spray,suspension (Flonase Allergy Relief) Allergies Allergy/AdvReac Type Severity Reaction Status Date / Time No Known Allergies Allergy Mild Verified 09/04/24 09:14 Review of Systems Review of Systems: CONSTITUTIONAL: Denies body aches, fever, chills, or sweats. EYES: Denies visual changes, redness, or discharge. ENT: Denies rhinorrhea, congestion CARDIOVASCULAR: Denies chest pain, palpitations, or edema. RESPIRATORY: Denies cough or dyspnea. GASTROINTESTINAL: Denies abdominal pain, nausea, vomiting, or diarrhea. SKIN: ?Abraision to left foot. MUSCULOSKELETAL: Denies back pain, joint pain, or myalgia. NEUROLOGIC: Denies headache, numbness, tingling, or weakness. All systems reviewed & are unremarkable except as noted in HPI and below PMFSH Past Medical History Medical History Prostate cancer screening Essential tremor Actinic keratosis Small bowel obstruction RLS (restless legs syndrome) Primary osteoarthritis of right knee Primary osteoarthritis of left knee Primary osteoarthritis of both knees Other chronic pain On skilled nursing drug therapy Mixed hyperlipidemia Mallet finger of right hand Hospital discharge follow-up Fatigue Erectile dysfunction Enlarged lymph node in neck Encounter for screening colonoscopy Elevated blood pressure reading Dyslipidemia Diabetes mellitus screening Decreased pedal pulses Cough Chronic pain of right knee Chronic pain of left knee CAD in [place] artery Elevated PSA Colon cancer screening Hyperlipidemia CAD (coronary artery disease) Surgical History Surgical History History of hernia surgery H/O heart artery stent stents times 2 Family History Family History Mother Family history of respiratory disorder Father Family history of cardiac disorder Other Family history of cardiovascular disease Social History Social History Smoking status: Never smoker Second hand tobacco smoke exposure: No Alcohol intake: never Substance use: never Substance use type: does not use Lack of Transportation: No Lack of Food: Never True Current Housing: I Have Housing Concerned About Future Housing: No Difficulty Paying Gas/Electric Bills: Decline to Answer Difficulty Paying for Meds: No Currently Unemployed: No Education: Decline to Answer Difficulty w/ Childcare or Family Care: Decline to Answer Gender identity (if verbalized by the patient): Male Spiritual care concerns: No Comments At time of signature, I have reviewed and agree with nursing past medical, surgical, social and family history unless otherwise noted. Please see nursing chart for further information. There is no relevant family history pertinent to the presenting complaint. Exam Narrative: GENERAL: Well-appearing HEAD: Normocephalic, atraumatic. EYES: ?Conjunctivae clear, and EOMI. ENT: Mucous membranes moist. Oropharynx without edema, erythema or lesions. NECK: Supple. No lymphadenopathy CHEST: Clear to auscultation. HEART: Regular rate and rhythm. SKIN: 4 cm x 1 cm abrasion noted to the left dorsal foot. There is erythema noted surrounding the abrasion. Non necrotic. No drainage. No fluctuance. NEURO: ?Alert and oriented x3.? Course Course Level of Care: Express Care Visit Vital Signs Vital signs: Reviewed MDM - Wound/Laceration MDM Narrative Medical decision making narrative: Discussed physical exam findings. Antibiotic given for infection abrasion. Patient declined vaseline and gauze to cover abrasion. Advised supportive m easures and signs/symptoms to go to the ER. Pt is appropriate for outpatient treatment and follow up. Differential Diagnosis Differential diagnosis: Likely laceration, abrasion and other (infection of abrasion) Critical Care Time Critical Care Time Critical Care Time: No Discharge Plan Discharge Clinical Impression: Foot abrasion, infected Qualifiers: Encounter type: initial encounter Laterality: left Qualified Code(s): S90.812A - Abrasion, left foot, initial encounter Patient Disposition: Home Condition: Stable Instructions: Antibiotic Form, Wound Infection (ED) Additional Instructions: Stop using castor oil and Neosporin. Keep the area clean and dry - cleanse with warm water and mild soap and allow to fully dry. Keep it open to air (no bandages) during the day. Cover with vaseline at night. Watch for worsening symptoms including pain, redness, swelling, streaking, pus/drainage, fever. Go to the ER with any of these symptoms or concerns. Follow up with primary care provider in 1 week as needed. Patient Language: Congolese Prescriptions: New cephalexin 500 mg capsule 500 mg PO TID 7 Days Qty: 21 0RF No Action omega-3 fatty acids [Fish Oil Concentrate] 1,000 mg capsule 2,000 mg PO DAILY multivitamin Tablet 1 tablet PO DAILY turmeric 400 mg capsule 400 mg PO DAILY vitamin K2 40 mcg tablet 40 mcg PO DAILY aspirin [Adult Low Dose Aspirin] 81 mg tablet,delayed release (DR/EC) 81 mg PO DAILY ascorbic acid (vitamin C) 1,000 mg tablet 1 g PO DAILY PRN fluticasone propionate [Flonase Allergy Relief] 50 mcg/actuation spray,suspension 1 spray intranasal DAILY PRN Rx Instructions: administer into each nostril magnesium 250 mg tablet 250 mg PO DAILY tadalafil [Cialis] 10 mg tablet 10 mg PO DAILY PRN (Reason: sexual activity) Qty: 30 5RF Rx Instructions: administer approximately 30min before sexual activity; do not use more than 1 dose per 24hrs primidone 50 mg tablet See Rx Instructions .ROUTE .COMPLEX Qty: 270 3RF Dose Instruction: TAKE 1 TABLET THREE TIMES DAILY Rx Instructions: TAKE 1 TABLET THREE TIMES DAILY Follow-up/Referrals: Shane Wood MD [Primary Care Provider] - Time of Disposition: 11:21
[2024-10-09] MEDS: TETANUS/DIPHTHERIA TOXOIDS ADSORB 0.5 ML SYRINGE (*BKC) IM (11:26)
== END 2024-10-09 11:32 | disposition home or self-care (01) ==
PROVIDERS: PCP Family Medicine
DX: S90.812A Abrasion, left foot, initial encounter (principal); W29.8XXA Contact with other powered hand tools and household machinery, initial encounter; Z23 Encounter for immunization; I25.10 Atherosclerotic heart disease of native coronary artery without angina pectoris; G25.81 Restless legs syndrome; M17.0 Bilateral primary osteoarthritis of knee; E78.2 Mixed hyperlipidemia
CPT/HCPCS: 90471; 90714; 99213; G0463